=== PATIENT | male | born 1955 | race Caucasian/White ===

== ENCOUNTER 2016-07-31 14:41 | Emergency (ER) | payer OTHER ==
[~2016-07-31] VITALS: Ht 182.9 cm; Wt 153.6 kg
[2016-07-31] VITALS (9 sets, daily range): BP systolic 149–200; BP diastolic 63–106; PULSE 64–71; RESP 18–20; TEMP 99.3; O2SAT 95–98
[~2016-07-31 14:41] MED LIST: 1-ME1LIQ PO; ASPI325T PO; ATOR40TA PO; CARV12.52 PO; FENO160T2 PO; FURO1TAB93 PO; IBUP-238 PO; LINA1TAB PO; LISI30TA44 PO; MISCTAB12 PO; POTA-243 PO; TERA2CAP3 PO
--- NOTE | 2016-07-31 19:44 | PD ---
HPI Chief Complaint: Hypertension Time Seen by Provider: 19:35 Travel History International Travel<30 days: No Contact w/Intl Traveler<30days: No Traveled to known affect area: No History of Present Illness HPI 60-year-old male presents to the emergency department by private transportation the care of significant other for evaluation of elevated blood pressure. Patient reports he is on multiple blood pressure medications and has had fairly good control of his blood pressure until noticing blood pressure elevation since Sunday. No headache no loss of vision no change in speech no chest pain no referred neck jaw back shoulder arm or abdominal pain no shortness of breath no sweats no nausea no vomiting and no voiced complaint of upper or lower extremity numbness tingling or weakness or ataxia of gait. Patient has noted some intermittent mild dizziness. Patient denies any dizziness at this time. Pain is has chronic pedal edema that he states was worse but has been taking Lasix over the past few days which she typically takes only on a as-needed basis. Patient has not yet taken his evening dose of amlodipine. Patient is followed by a primary care physician but has not had any recent cardiac referral. Patient had 2 vessel cardiac bypass in 2007 in [place] moved here in 2010 has not been seen by underwear hemmer since moving to [place]. Patient does have history of hypertension dyslipidemia CAD diabetes and family history of CAD but denies personal history of tobacco use. Patient voices no other concerns or complaints. PFSH Past Medical History Narrative Medical CAD PR CHF CABG (LUE harvested vessels; chronic R/L arm BP discrepancy) hypertension dyslipidemia diabetes knee surgery no tobacco use family history CAD nursing notes reviewed Hx Anticoagulant Therapy: No Arthritis: Yes (LEFT SHOULDER) Cardiac Catheterization: Yes Cardiovascular Problems: Yes (CABG, HTN, CHF ) Chemotherapy: No Chest Pain: Yes Coronary Artery Disease: Yes Diabetes: Yes (Type 2 ) Diminished Hearing: No Hypertension: Yes Respiratory: No Immunizations Current: Yes Myocardial Infarction: Yes (X1) Past Surgical History Coronary Artery Bypass Graft: Yes (X 2 VESSELS) Hysterectomy: No Other Surgery: Yes (L Knee) Social History Alcohol Use: No Tobacco Use: No (QUIT 30+ YRS AGO SMOKED CIGS 1/2 PPD) Substance Use: No Allergies-Medications (Allergen,Severity, Reaction): Coded Allergies: No Known Allergies (Unverified , 07/31/16) Reported Meds & Prescriptions Reported Meds & Active Scripts Active Reported Furosemide 40 Mg Tab 40 Mg PO DAILY Jentadueto (Linagliptin-Metformin) 2.5-1,000 Mg Tab 1 Tab PO BID Lisinopril 40 Mg Tab 40 Mg PO DAILY Carvedilol 25 Mg Tab 25 Mg PO BID Fenofibrate 160 Mg Tab 160 Mg PO DAILY Atorvastatin (Atorvastatin Calcium) 40 Mg Tab 40 Mg PO HS K-Tab (Potassium Chloride) 10 Meq Tab 10 Meq PO DAILY Amlodipine (Amlodipine Besylate) 10 Mg Tab 10 Mg PO DAILY Terazosin (Terazosin HCl) 2 Mg Cap 2 Mg PO HS Review of Systems Except as stated in HPI: all other systems reviewed are Neg General / Constitutional: No: Fever, Chills Eyes: No: Diploplia, Blurred Vision, Visual changes HENT: Positive: Lightheadedness, No: Headaches, Vertigo, Congestion, Neck Stiffness, Neck Pain Cardiovascular: Positive: Edema (pedal), No: Chest Pain or Discomfort, Palpitations, Diaphoresis, Syncope, Dyspnea on exertion Respiratory: No: Cough, Shortness of Breath Gastrointestinal: No: Nausea, Vomiting, Abdominal Pain Genitourinary: No: Flank Pain Musculoskeletal: Positive: Edema (pedal), No: Myalgias, Arthralgias Skin: No Rash Neurologic: Positive: Dizziness, No: Weakness, Syncope, Focal Abnormalities, Coordination Problem, Headache, Change in Mentation Psychiatric: No: Anxiety Hematologic/Lymphatic: No: Lymph Node Enlargement Physical Exam Narrative GENERAL: Well-developed well-nourished male in no acute distress no respiratory distress no SKIN: Warm and dry. HEAD: Normocephalic. EYES: No scleral icterus. No injection or drainage. NECK: Supple, trachea midline. No JVD or lymphadenopathy. CARDIOVASCULAR: Regular rate and rhythm without murmurs, gallops, or rubs. RESPIRATORY: Breath sounds equal bilaterally. No accessory muscle use. GASTROINTESTINAL: Abdomen soft, non-tender, nondistended. MUSCULOSKELETAL: No cyanosis, or edema. BACK: Nontender without obvious deformity. No CVA tenderness. Data Data Last Documented VS Vital Signs Date Time Temp Pulse Resp B/P Pulse Ox O2 Delivery O2 Flow Rate FiO2 07/31/16 23:30 70 20 178/71 98 07/31/16 20:24 Room Air 07/31/16 20:12 2 07/31/16 14:54 99.3 Orders Electrocardiogram (07/31/16 19:35) Basic Metabolic Panel (Bmp) (07/31/16 19:35) Ckmb (Isoenzyme) Profile (07/31/16 19:35) Complete Blood Count With Diff (07/31/16 19:35) Magnesium (Mg) (07/31/16 19:35) Prothrombin Time / Inr (Pt) (07/31/16 19:35) Act Partial Throm Time (Ptt) (07/31/16 19:35) Troponin I (07/31/16 19:35) Chest, Single Ap (07/31/16 19:35) Ecg Monitoring (07/31/16 19:35) Bilateral Bp Monitoring (07/31/16 19:35) Iv Access Insert/Monitor (07/31/16 19:35) Oximetry (07/31/16 19:35) Oxygen Administration (07/31/16 19:35) Sodium Chloride 0.9% Flush (Ns Flush) (07/31/16 19:45) Amlodipine (Norvasc) (07/31/16 20:00) Ct Brain W/O Iv Contrast(Rout) (07/31/16 ) CKMB (07/31/16 19:40) CKMB% (07/31/16 19:40) Potassium Chloride (Kcl) (07/31/16 22:00) Labs Laboratory Tests Test 07/31/16 19:40 White Blood Count 9.3 TH/MM3 Red Blood Count 4.49 MIL/MM3 Hemoglobin 12.6 GM/DL Hematocrit 37.7 % Mean Corpuscular Volume 83.9 FL Mean Corpuscular Hemoglobin 28.0 PG Mean Corpuscular Hemoglobin 33.4 % Concent Red Cell Distribution Width 14.7 % Platelet Count 245 TH/MM3 Mean Platelet Volume 8.3 FL Neutrophils (%) (Auto) 75.6 % Lymphocytes (%) (Auto) 14.0 % Monocytes (%) (Auto) 6.6 % Eosinophils (%) (Auto) 3.4 % Basophils (%) (Auto) 0.4 % Neutrophils # (Auto) 7.1 TH/MM3 Lymphocytes # (Auto) 1.3 TH/MM3 Monocytes # (Auto) 0.6 TH/MM3 Eosinophils # (Auto) 0.3 TH/MM3 Basophils # (Auto) 0.0 TH/MM3 CBC Comment DIFF FINAL Differential Comment Prothrombin Time 11.4 SEC Prothromb Time International 1.0 RATIO Ratio Activated Partial 27.5 SEC Thromboplast Time Sodium Level 145 MEQ/L Potassium Level 3.0 MEQ/L Chloride Level 106 MEQ/L Carbon Dioxide Level 31.4 MEQ/L Anion Gap 8 MEQ/L Blood Urea Nitrogen 19 MG/DL Creatinine 1.50 MG/DL Estimat Glomerular Filtration 48 ML/MIN Rate Random Glucose 95 MG/DL Calcium Level 9.5 MG/DL Magnesium Level 1.8 MG/DL Total Creatine Kinase 157 U/L Creatine Kinase MB 1.2 NG/ML Troponin I LESS THAN 0.02 NG/ML MDM Medical Decision Making Medical Screen Exam Complete: Yes Emergency Medical Condition: Yes Medical Record Reviewed: Yes Interpretation(s) EKG sinus bradycardia rate 56 QS inferiorly age-indeterminate septal and lateral ST-T changes with flattening and slight ST segment depression in no acute ST elevation or injury pattern; no comparison EKG troponin I: less than 0.02, not elevated; CK: 157, not elevated Last Impressions Chest X-Ray 07/31/16 1935 Signed Impressions: Service Date/Time: Sunday, July 31, 2016 19:54 - CONCLUSION: 1. Cardiomegaly. Median sternotomy. Mildly elevated right hemidiaphragm. Eladio Aviles MD Head CT 07/31/16 0000 Signed Impressions: Service Date/Time: Sunday, July 31, 2016 20:21 - CONCLUSION: Normal examination. Eladio Aviles MD CBC & BMP Diagram 07/31/16 19:40 Differential Diagnosis Uncontrolled hypertension, hypertensive urgency, TIA, CVA Narrative Course Patient reports it is time for his dose of amlodipine 10mg which he takes each evening @ 8:10 PM nurse shares that shared that Sunday patient was confused when she talked with him on the phone until she returned home; @ 8:20PM and patient confirm on Sunday with elevated BP approximately 1 hour of agitation felt confusion without slurred speech visual disturbance headache or other focality that resolved upon lowering of BP and no recurrence; ( reports called because of elevated blood pressure, not feeling well then the phone service was disrupted). Patient refused to go for evaluation at the time. @ 22:06 BP: 152/78, after receiving his evening dose of amlodipine; patient with spouse at bedside aware of EKG, CT, lab results and recommendation for observation admission for further work up of episode of confusion as TIA vs HTN urgency/ transient crisis on Sunday and due to nonspecific EKG changes without cardiac evaluation since 2010 per patient and spouse. Patient aware of risk/ benefit of staying in the hospital for further in house evaluation and expediting evaluation to determine possible sequela eyes due to hypertensive episode on Sunday and also for serial enzymes. Patient states she does not want to stay feels well now blood pressure is down. is at bedside states patient artery has an appointment with his primary care physician on Sunday and will call in the a.m. to change appointment for tomorrow. Patient identified to have hypokalemia and given oral replacement in the emergency department; patient also identified to have renal insufficiency which patient and spouse reports is chronic. Diagnosis Primary Impression: Hypertension Qualified Code: I10 - Essential hypertension Additional Impressions: CAD (coronary artery disease) Qualified Code: I25.810 - Coronary artery disease involving coronary bypass graft of [place] heart without angina pectoris Hypokalemia Renal insufficiency Referrals: Primary Care Physician 1 day Patient Instructions: General Instructions Additional Instructions: Continue current medications as presently prescribed Follow-up with your primary care provider call office in a.m. to schedule follow -up appointment Return immediately to the emergency department for any concerns or change in condition Add potassium containing foods and beverages to dietary intake Increase fluid hydration Med/Other Pt SpecificInfo: No Change to Meds Disposition: 01 DISCHARGE HOME Condition: Stable Herminia Booth MD Jul 31, 2016 19:44
[2016-07-31] MEDS ORDERED: SODIUM CHLORIDE 0.9% FLUSH 5 ML FLUSH IVF PRN (19:45)
[2016-07-31] MEDS ORDERED: amLODIPine BESYLATE 5 MG TAB PO ONE (20:00)
[2016-07-31 20:06] LABS: CHLORIDE 106 MEQ/L (98-107); SODIUM (NA) 145 MEQ/L (136-145)
[2016-07-31 20:09] LABS: ANION GAP 8 MEQ/L (5-15); BICARBONATE 31.4 MEQ/L (21.0-32.0); BLOOD UREA NITROGEN 19 MG/DL (7-18); MAGNESIUM 1.8 MG/DL (1.5-2.5)
[2016-07-31 20:12] LABS: GLOMERULAR FILTRATION RATE 48 ML/MIN (>89)
[2016-07-31 20:15] LABS: CREATINE KINASE 157 U/L (39-308)
[2016-07-31 20:20] LABS: APTT (PATIENT) 27.5 SEC (24.3-30.1); PROTHROMBIN TIME - PATIENT 11.4 SEC (9.8-11.6)
[2016-07-31 20:28] LABS: CKMB 1.2 NG/ML (0.5-3.6)
[2016-07-31] MEDS ORDERED: TERA2CAP3 PO (20:32)
--- NOTE | 2016-07-31 21:00 | RADHPO ---
EXAM DATE/TIME: 07/31/2016 20:21 [facility] COMPARISON: No previous studies available for comparison. INDICATIONS : Dizziness. RADIATION DOSE: 65.72 CTDIvol (mGy) MEDICAL HISTORY : Hypertension. Diabetes mellitus type 2. Cardiovascular disease SURGICAL HISTORY : None. ENCOUNTER: Initial ACUITY: 1 day PAIN SCALE: 5/10 LOCATION: Bilateral cranial TECHNIQUE: Multiple contiguous axial images were obtained of the head. Using automated exposure control and adj ustment of the mA and/or kV according to patient size, radiation dose was kept as low as reasonably a chievable to obtain optimal diagnostic quality images. FINDINGS: CEREBRUM: The ventricles are normal for age. No evidence of midline shift, mass lesion, hemorrhage or acute in farction. No extra-axial fluid collections are seen. POSTERIOR FOSSA: The cerebellum and brainstem are intact. The 4th ventricle is midline. The cerebellopontine angle i s unremarkable. EXTRACRANIAL: The visualized portion of the orbits is intact. SKULL: The calvaria is intact. No evidence of skull fracture. CONCLUSION: Normal examination. Eladio Aviles MD on July 31, 2016 at 20:57 Board Certified Radiologist. This report was verified electronically.
--- NOTE | 2016-07-31 21:28 | RADHPO ---
EXAM DATE/TIME: 07/31/2016 19:54 [facility] COMPARISON: No previous studies available for comparison. INDICATIONS : High blood pressure. MEDICAL HISTORY : Congestive heart failure. SURGICAL HISTORY : CABG. ENCOUNTER: Initial ACUITY: 1 day PAIN SCORE: 0/10 LOCATION: Bilateral chest FINDINGS: A single view of the chest demonstrates cardiomegaly. Postoperative median sternotomy. Minimal basila r atelectasis. Mildly elevated right hemidiaphragm. CONCLUSION: 1. Cardiomegaly. Median sternotomy. Mildly elevated right hemidiaphragm. Eladio Aviles MD on July 31, 2016 at 21:26 Board Certified Radiologist. This report was verified electronically.
[2016-07-31 21:40] LABS: AUTOMATED NEUTROPHIL # 7.1 TH/MM3 (1.8-7.7); BASOPHIL % 0.4 % (0.0-2.0); EOSINOPHIL # 0.3 TH/MM3 (0-0.4); EOSINOPHIL % 3.4 % (0.0-4.0); HEMATOCRIT 37.7 % (39.0-51.0); HEMO FLAGS DIFF FINAL; LYMPHOCYTE # 1.3 TH/MM3 (1.0-4.8); MEAN CELL VOLUME 83.9 FL (80.0-100.0); MEAN CORPUSCULAR HGB CONC 33.4 % (32.0-36.0); MONO % 6.6 % (0.0-8.0); NEUT % 75.6 % (16.0-70.0); PLATELET COUNT 245 TH/MM3 (150-450); RED BLOOD COUNT 4.49 MIL/MM3 (4.50-5.90); RED CELL DISTRIBUTION WIDTH 14.7 % (11.6-17.2); WHITE BLOOD COUNT 9.3 TH/MM3 (4.0-11.0)
[2016-07-31] MEDS ORDERED: POTASSIUM CHLORIDE 20 MEQ CONTROLLED RELEASE TAB PO ONE (22:00)
[2016-07-31] MEDS ORDERED: LISI40TA PO (22:53)
[2016-07-31] MEDS ORDERED: FURO40TA PO (22:53)
[2016-07-31] MEDS ORDERED: LINA2.5T5 PO (22:53)
[2016-07-31] MEDS ORDERED: CARV25TA PO (22:53)
[2016-07-31] MEDS ORDERED: AMLO10TA2 PO (22:53)
[2016-07-31] MEDS ORDERED: K-TA10TA PO (22:53)
[2016-07-31] MEDS ORDERED: ATOR40TA16 PO (22:53)
[2016-07-31] MEDS ORDERED: FENO160T PO (22:53)
--- NOTE | 2016-08-01 17:12 | EKG ---
Date Performed: 07/31/2016 Time Performed: 19:23:24 PTAGE: 60 years EKG: Sinus bradycardia Inferior infarct - age undetermined Septal and lateral ST-T changes may b e due to myocardial ischemia Abnormal ECG NO PREVIOUS TRACING DOCTOR: Will Nogueira Interpretating Date/Time 08/01/2016 17:07:25
== END 2016-08-01 00:10 | disposition home or self-care (01) ==
LOC: PHED 14:41
DX: I10 Essential (primary) hypertension (principal); I25.10 Atherosclerotic heart disease of native coronary artery without angina pectoris; Z95.1 Presence of aortocoronary bypass graft; E87.6 Hypokalemia; R42 Dizziness and giddiness; R94.31 Abnormal electrocardiogram [ECG] [EKG]; N28.9 Disorder of kidney and ureter, unspecified; I50.9 Heart failure, unspecified; E78.5 Hyperlipidemia, unspecified; E11.9 Type 2 diabetes mellitus without complications; I25.2 Old myocardial infarction; R60.9 Edema, unspecified; R00.1 Bradycardia, unspecified
CPT/HCPCS: 70450; 71010; 80048; 82550; 82552; 83735; 84484; 85025; 85610; 85730; 93005

== ENCOUNTER 2017-05-06 10:49 | Inpatient (IN) | payer OTHER, MEDICARE ==
[~2017-05-06] VITALS: Ht 182.9 cm; Wt 149.0 kg
[2017-05-06] VITALS (20 sets, daily range): BP systolic 145–207; BP diastolic 65–102; PULSE 59–78; RESP 16–20; TEMP 97.8–98.8; O2SAT 93–97
[~2017-05-06 10:49] MED LIST changes: -1-ME1LIQ PO; +AMLO10TA2 PO; -ASPI325T PO; -ATOR40TA PO; +ATOR40TA16 PO; -CARV12.52 PO; +CARV25TA PO; +FENO160T PO; -FENO160T2 PO; -FURO1TAB93 PO; +FURO40TA PO; -IBUP-238 PO; +K-TA10TA PO; -LINA1TAB PO; +LINA2.5T5 PO; -LISI30TA44 PO; +LISI40TA PO; -MISCTAB12 PO; -POTA-243 PO
[2017-05-06] MEDS ORDERED: HEPARIN SODIUM - IV 10,000 UNITS/10 ML VIAL IV PUSH STA (11:07)
[2017-05-06] MEDS ORDERED: ASPIRIN 81 MG CHEW TAB PO STA (11:07)
[2017-05-06] MEDS ORDERED: NITROGLYCERIN 0.4 MG SL 25 TABS/BTL SL STA (11:07)
[2017-05-06] MEDS ORDERED: SODIUM CHLOR 0.9% 1000 ML INJ 1,000 ML IV ONE (11:07)
[2017-05-06] MEDS ORDERED: SODIUM CHLORIDE 0.9% FLUSH 10 ML FLUSH IVF PRN (11:15)
[2017-05-06] MEDS ORDERED: ONDANSETRON HCL 4 MG/2 ML VIAL IV PUSH ONE (11:15)
[2017-05-06] MEDS ORDERED: NITROGLYCERIN-D5W 50 MG/250 ML 250 ML IV PRN (11:15)
--- NOTE | 2017-05-06 11:25 | PD ---
HPI Chief Complaint: STEMI Alert Time Seen by Provider: 11:00 Travel History International Travel<30 days: No Contact w/Intl Traveler<30days: No Traveled to known affect area: No History of Present Illness HPI the patient 61 years old. He arrives due to dizziness sudden onset severe as if the room is spinning around him and as if he might pass out. Just prior to ER arrival he finished a breakfast and then got up to the car with gas and upon doing so became diaphoretic and dizzy. He reports his blood pressure has been high lately despite compliance with antihypertensives. In 2007 he underwent coronary bypass surgery which she reports is due to disease of the left main. He follows with Dr. Crenshaw of cardiology. Additionally he has a history of diabetes and hypertension. Patient denies chest pain and shortness of breath. No tinnitus otalgia or otorrhea. PFSH Past Medical History Hx Anticoagulant Therapy: Yes (asa) Arthritis: Yes (LEFT SHOULDER) Cardiac Catheterization: Yes Cardiovascular Problems: Yes Chemotherapy: No Chest Pain: Yes Coronary Artery Disease: Yes Diabetes: Yes Diminished Hearing: No Hypertension: Yes Respiratory: No Immunizations Current: Yes Myocardial Infarction: Yes (X1) Past Surgical History Coronary Artery Bypass Graft: Yes (X 2 VESSELS) Hysterectomy: No Other Surgery: Yes (L Knee) Social History Alcohol Use: No Tobacco Use: No (QUIT 30+ YRS AGO SMOKED CIGS 1/2 PPD) Substance Use: No Allergies-Medications (Allergen,Severity, Reaction): Coded Allergies: No Known Allergies (Unverified Allergy, Unknown, 05/06/17) Reported Meds & Prescriptions Reported Meds & Active Scripts Active Reported Folic Acid 0.8 Mg Tab 800 Mcg PO DAILY Trexall (Methotrexate) 7.5 Mg Tab 22.5 Mg PO Q7D Centrum (Multiple Vitamins W/ Minerals) 1 Chew 1 Tab CHEW DAILY Aspirin EC (Aspirin) 81 Mg Tabdr 81 Mg PO DAILY Clonidine (Clonidine HCl) 0.2 Mg Tab 0.2 Mg PO TID Furosemide 40 Mg Tab 20 Mg PO DAILY Jentadueto (Linagliptin-Metformin) 2.5-1,000 Mg Tab 1 Tab PO BID Lisinopril 40 Mg Tab 40 Mg PO BID Carvedilol 25 Mg Tab 25 Mg PO BID Fenofibrate 160 Mg Tab 160 Mg PO DAILY Atorvastatin (Atorvastatin Calcium) 40 Mg Tab 40 Mg PO HS K-Tab (Potassium Chloride) 10 Meq Tab 10 Meq PO DAILY Amlodipine (Amlodipine Besylate) 10 Mg Tab 10 Mg PO DAILY Terazosin (Terazosin HCl) 2 Mg Cap 10 Mg PO HS Review of Systems Except as stated in HPI: all other systems reviewed are Neg General / Constitutional: No: Fever Cardiovascular: No: Chest Pain or Discomfort Neurologic: Positive: Dizziness, No: Syncope Physical Exam Narrative GENERAL: Well-nourished well-developed 61-year-old male mild to moderate distress SKIN: Warm. Diaphoresis. HEAD: Atraumatic. Normocephalic. EYES: Pupils equal and round. No scleral icterus. No injection or drainage. No nystagmus. ENT: No nasal bleeding or discharge. Mucous membranes pink and moist. NECK: Trachea midline. No JVD. CARDIOVASCULAR: Regular rate and rhythm. RESPIRATORY: No accessory muscle use. Clear to auscultation. Breath sounds equal bilaterally. GASTROINTESTINAL: Abdomen soft, non-tender, nondistended. Hepatic and splenic margins not palpable. MUSCULOSKELETAL: Extremities without clubbing, cyanosis, or edema. No obvious deformities. NEUROLOGICAL: Awake and alert. No obvious cranial nerve deficits. Motor grossly within normal limits. Five out of 5 muscle strength in the arms and legs. Normal speech. PSYCHIATRIC: Appropriate mood and affect; insight and judgment normal. Data Data Last Documented VS Vital Signs Date Time Temp Pulse Resp B/P (MAP) Pulse Ox O2 Delivery O2 Flow Rate FiO2 05/06/17 12:55 64 18 157/82 (107) 97 Nasal Cannula 2.00 05/06/17 10:55 98.7 VS reviewed Orders Orders Troponin I (05/06/17 11:07) Ckmb (Isoenzyme) Profile (05/06/17 11:07) Complete Blood Count With Diff (05/06/17 11:07) Basic Metabolic Panel (Bmp) (05/06/17 11:07) Magnesium (Mg) (05/06/17 11:07) Calcium (05/06/17 11:07) Prothrombin Time / Inr (Pt) (05/06/17 11:07) Act Partial Throm Time (Ptt) (05/06/17 11:07) B-Type Natriuretic Peptide (05/06/17 11:07) Chest, Single Ap (05/06/17 11:07) Electrocardiogram (05/06/17 11:07) Oxygen Administration (05/06/17 11:07) Iv Access Insert/Monitor (05/06/17 11:07) Oximetry (05/06/17 11:07) Sodium Chlor 0.9% 1000 Ml Inj (Ns 1000 M (05/06/17 11:07) Sodium Chloride 0.9% Flush (Ns Flush) (05/06/17 11:15) Aspirin Chew (Aspirin Chew) (05/06/17 11:07) Nitroglycerin Sl (Nitrostat Sl) (05/06/17 11:07) Nitroglycerin-D5w 50 Mg/250 Ml (Nitrogly (05/06/17 11:15) Heparin Inj (Heparin Inj) (05/06/17 11:07) Ondansetron Inj (Zofran Inj) (05/06/17 11:15) Lorazepam Inj (Ativan Inj) (05/06/17 11:30) Meclizine (Antivert) (05/06/17 11:30) Cardiac Catheterization (05/06/17 ) Ct Pulmonary Angiogram (05/06/17 11:35) CKMB (05/06/17 11:00) CKMB% (05/06/17 11:00) Heparin Inj (Heparin Inj) (05/06/17 18:45) Heparin Inj (Heparin Inj) (05/06/17 18:45) Cbc No Diff, Includes Plts (05/09/17 06:00) Act Partial Throm Time (Ptt) (05/06/17 19:32) Occult Blood (Hemoccult) Stool (05/06/17 12:32) Heparin Infusion JULISA.Q1H (05/06/17 12:34) Heparin-D5w 25,000 U/250 Ml (Heparin-D5w (05/06/17 12:45) Iohexol 350 Inj (Omnipaque 350 Inj) (05/06/17 12:46) Admit Order (Ed Use Only) (05/06/17 ) Variety Lathe Operator / Telemetry JULISA.Q8H (05/06/17 13:01) Vital Signs (Adult) Q4H (05/06/17 13:01) Diet Npo (05/06/17 Lunch) Activity Bed Rest (05/06/17 13:01) Notify Dr: Other (05/06/17 13:01) Labs Laboratory Tests Test 05/06/17 11:00 White Blood Count 8.4 TH/MM3 Red Blood Count 4.43 MIL/MM3 Hemoglobin 12.8 GM/DL Hematocrit 38.2 % Mean Corpuscular Volume 86.2 FL Mean Corpuscular Hemoglobin 28.9 PG Mean Corpuscular Hemoglobin Concent 33.5 % Red Cell Distribution Width 17.1 % Platelet Count 296 TH/MM3 Mean Platelet Volume 8.0 FL Neutrophils (%) (Auto) 81.3 % Lymphocytes (%) (Auto) 8.9 % Monocytes (%) (Auto) 5.9 % Eosinophils (%) (Auto) 3.4 % Basophils (%) (Auto) 0.5 % Neutrophils # (Auto) 6.8 TH/MM3 Lymphocytes # (Auto) 0.8 TH/MM3 Monocytes # (Auto) 0.5 TH/MM3 Eosinophils # (Auto) 0.3 TH/MM3 Basophils # (Auto) 0.0 TH/MM3 CBC Comment DIFF FINAL Differential Comment Prothrombin Time 10.9 SEC Prothromb Time International Ratio 1.0 RATIO Activated Partial Thromboplast Time 27.6 SEC Blood Urea Nitrogen 15 MG/DL Creatinine 1.50 MG/DL Random Glucose 168 MG/DL Calcium Level 9.1 MG/DL Magnesium Level 2.3 MG/DL Sodium Level 142 MEQ/L Potassium Level 3.3 MEQ/L Chloride Level 105 MEQ/L Carbon Dioxide Level 28.2 MEQ/L Anion Gap 9 MEQ/L Estimat Glomerular Filtration Rate 47 ML/MIN Total Creatine Kinase 151 U/L Creatine Kinase MB 1.2 NG/ML Troponin I LESS THAN 0.02 NG/ML B-Type Natriuretic Peptide 104 PG/ML [facility] Medical Decision Making Medical Screen Exam Complete: Yes Emergency Medical Condition: Yes Medical Record Reviewed: Yes Differential Diagnosis NSTEMI, unstable angina, coronary vasospasm, PE, PTX, aortic dissection, pericarditis, myocarditis, endocarditis, PNA, esophageal disease, aneurysm, musculoskeletal etiologies, anxiety, cocaine/sympathomimetic abuse Narrative Course EKG reveals ST changes in II, III and aVF some pf which are concerning for acute coronary ischemia, additional changes in multiple other leads are noted rate 67 EKG was discussed with Dr. Aviles who advised against a STEMI alert activation. Labwork with plan for CT pulmonary angiogram added on. Patient received Ativan 1 mg IV here as well as meclizine and Zofran reports significant improvement with dizziness and nausea upon reassessment at 12:15 PM however has mild persistent dizziness, which is most likely peripheral in nature. Tn < 0.02 CXR: cardiomegaly CBC & BMP Diagram 05/06/17 11:00 Calcium Level 9.1, Magnesium Level 2.3 Pt will be sent to [facility] CT pulmonary angiogram is negative for PE d/w Dr Castillo Critical Care Narrative Aggregate critical care time was 40 minutes. Time to perform other separately billable procedures was not included in the critical care time. My time did not include minutes spent treating any other patients simultaneously or on activities that did not directly contribute to the patient's treatment. The services I provided to this patient were to treat and/or prevent clinically significant deterioration that could result in: Cardiopulmonary arrest, permanent disability I provided critical care services requiring my management, as noted below: Chart data review, documentation time, medication orders and management, vital sign assessments/reviewing monitor data, ordering and reviewing lab tests, ordering and interpreting/reviewing x-rays and diagnostic studies, care of the patient and discussion of the patient with the admitting physicians. Diagnosis Primary Impression: Dizziness Additional Impression: ST segment changes on electrocardiogram Admitting Information Admitting Physician Requests: Kostas Lui MD May 06, 2017 11:25
[2017-05-06] MEDS ORDERED: MECLIZINE HCL 25 MG TAB PO ONE (11:30)
[2017-05-06] MEDS ORDERED: LORazepam 2 MG/ML VIAL IV PUSH ONE (11:30)
[2017-05-06 11:31] LABS: AUTOMATED NEUTROPHIL # 6.8 TH/MM3 (1.8-7.7); BASOPHIL % 0.5 % (0.0-2.0); EOSINOPHIL # 0.3 TH/MM3 (0-0.4); EOSINOPHIL % 3.4 % (0.0-4.0); HEMATOCRIT 38.2 % (39.0-51.0); LYMPH % 8.9 % (9.0-44.0); LYMPHOCYTE # 0.8 TH/MM3 (1.0-4.8); MEAN CELL VOLUME 86.2 FL (80.0-100.0); MEAN CORPUSCULAR HEMOGLOBIN 28.9 PG (27.0-34.0); MEAN CORPUSCULAR HGB CONC 33.5 % (32.0-36.0); MONO % 5.9 % (0.0-8.0); NEUT % 81.3 % (16.0-70.0); PLATELET COUNT 296 TH/MM3 (150-450); RED BLOOD COUNT 4.43 MIL/MM3 (4.50-5.90); RED CELL DISTRIBUTION WIDTH 17.1 % (11.6-17.2); WHITE BLOOD COUNT 8.4 TH/MM3 (4.0-11.0)
--- NOTE | 2017-05-06 11:32 | RADRPT ---
EXAM DATE/TIME: 05/06/2017 11:09 [facility] COMPARISON: CHEST SINGLE AP, July 31, 2016, 19:54. INDICATIONS : Cardiac alert, sweating, nausea, chest pain MEDICAL HISTORY : Congestive heart failure. SURGICAL HISTORY : CABG. ENCOUNTER: Initial ACUITY: 1 day PAIN SCORE: 7/10 LOCATION: Bilateral chest FINDINGS: The heart is mildly enlarged. There is evidence of previous CABG. Lungs are clear without evidence of acute airspace disease or congestion. CONCLUSION: Mild cardiomegaly Status post CABG No acute process Nelson Ruff MD on May 06, 2017 at 11:30 Board Certified Radiologist. This report was verified electronically.
[2017-05-06 11:42] LABS: HEMO FLAGS DIFF FINAL
[2017-05-06 11:44] LABS: CHLORIDE 105 MEQ/L (98-107); POTASSIUM 3.3 MEQ/L (3.5-5.1); SODIUM (NA) 142 MEQ/L (136-145)
[2017-05-06 11:47] LABS: ANION GAP 9 MEQ/L (5-15); BICARBONATE 28.2 MEQ/L (21.0-32.0); BLOOD UREA NITROGEN 15 MG/DL (7-18); MAGNESIUM 2.3 MG/DL (1.5-2.5)
[2017-05-06 11:51] LABS: GLOMERULAR FILTRATION RATE 47 ML/MIN (>89)
[2017-05-06 11:54] LABS: CREATINE KINASE 151 U/L (39-308)
[2017-05-06] MEDS ORDERED: CLON0.2T PO (11:59)
[2017-05-06] MEDS ORDERED: CENTCHW4 CHEW (11:59)
[2017-05-06] MEDS ORDERED: ASPI81TA23 PO (11:59)
[2017-05-06] MEDS ORDERED: TREX7.5T PO (12:01)
[2017-05-06] MEDS ORDERED: FOLI800T PO (12:01)
[2017-05-06 12:03] LABS: APTT (PATIENT) 27.6 SEC (24.3-30.1); PROTHROMBIN TIME - PATIENT 10.9 SEC (9.8-11.6)
[2017-05-06 12:06] LABS: CKMB 1.2 NG/ML (0.5-3.6)
[2017-05-06] MEDS ORDERED: HEPARIN-D5W 25,000 U/250 ML 250 ML IV PRN (12:45)
[2017-05-06] MEDS ORDERED: IOHEXOL 350 MG/ML 10 ML VIAL (for RAD DIAG) IVCONTRAST ONE (12:46)
--- NOTE | 2017-05-06 12:53 | RADRPT ---
EXAM DATE/TIME: 05/06/2017 12:34 [facility] COMPARISON: No previous studies available for comparison. INDICATIONS : Dizziness and sweating. Evaluate for pulmonary embolism. IV CONTRAST: 75 cc Omnipaque 350 (iohexol) IV RADIATION DOSE: 21.70 CTDIvol (mGy) MEDICAL HISTORY : Cardiovascular disease. Myocardial infarction. Hypertension.Anticoagulant therapy. SURGICAL HISTORY : CABG ENCOUNTER: Initial ACUITY: 1 day PAIN SCALE: 0/10 LOCATION: chest TECHNIQUE: Volumetric scanning of the chest was performed using a pulmonary embolism protocol MIP images were re constructed. Using automated exposure control and adjustment of the mA and/or kV according to patien t size, radiation dose was kept as low as reasonably achievable to obtain optimal diagnostic quality images. DICOM format image data is available electronically for review and comparison. Follow-up recommendations for detected pulmonary nodules are based at a minimum on nodule size and pa tient risk factors according to Fleischner Society Guidelines. FINDINGS: PULMONARY ARTERIES: No filling defects are seen in the pulmonary arteries through the segmental level. LUNGS: There is no consolidation or pneumothorax . No concerning pulmonary nodule is visualized. PLEURAE: There is no pleural thickening or pleural effusion. MEDIASTINUM: Post surgical changes from prior CABG are noted. Heart is moderately enlarged. Coronary artery calcif ication is identified. MUSCULOSKELETAL: Within normal limits for patient age. MISCELLANEOUS: The visualized upper abdominal organs demonstrate no acute abnormality. Calcified gallstone is noted. CONCLUSION: 1. No evidence of pulmonary embolism or acute cardio pulmonary process. 2. Cardiomegaly status post CABG. 3. Calcific coronary disease. 4. Cholelithiasis Nelson Ruff MD on May 06, 2017 at 12:48 Board Certified Radiologist. This report was verified electronically.
[2017-05-06] MEDS ORDERED: HEPARIN SODIUM - SQ 10,000 UNITS/ML VIAL SQ SCH (14:00)
[2017-05-06] MEDS ORDERED: LORazepam 1 MG TAB PO ONE (14:00)
--- NOTE | 2017-05-06 14:02 | HHI.HP ---
[facility] Primary Care Physician Non-Staff Admission Diagnosis Dizziness; EKG Changes; Nausea Diagnoses: Chief Complaint: And dizziness and sweating Travel History International Travel<30 Days: No Contact w/Intl Traveler <30 Da: No Traveled to Known Affected Are: No History of Present Illness 61-year-old white male being admitted for atypical angina. Patient was in his usual state of health until earlier today when he was out doing chores and suddenly felt an onset of intense dizziness, lightheadedness, and diaphoresis. He experienced some nausea as well. He noticed that constantly moving around and sudden movements would intensify the symptoms even further. It were no alleviating factors identified other than staying at rest. Patient denies any micheline chest pain or shortness of breath. He denies ever experiencing such symptoms in the past. He has had a history of CABG as well as a few stress tests afterwards which were unremarkable per patient. States that he is on a trial with Dr. Crenshaw on taking methotrexate. States that he is compliant with his aspirin and his Lipitor. Says that he still feels dizzy and lightheaded now but says that his symptoms got partially improved after receiving some medications in the ER (received meclizine and Zofran and nitroglycerin) but isn't sure exactly which medicine helped. ) Review of Systems Except as stated in HPI: all other systems reviewed are Neg Past Family Social History Past Medical History CAD, arthritis Past Surgical History CABG, left knee surgery Allergies: Coded Allergies: No Known Allergies (Unverified Allergy, Unknown, 05/06/17) Family History Mother with heart disease Social History Stop smoking 30 years ago, up until then had been smoking half pack per day, does report occasional light alcohol use about 1 drink every month or so. Denies illicit drug use. Physical Exam Vital Signs Vital Signs Date Time Temp Pulse Resp B/P (MAP) Pulse Ox O2 Delivery O2 Flow Rate FiO2 05/06/17 12:55 64 18 157/82 (107) 97 Nasal Cannula 2.00 05/06/17 12:20 59 18 164/78 (106) 95 Nasal Cannula 2.00 05/06/17 12:02 63 18 158/79 (105) 94 Nasal Cannula 2.00 05/06/17 11:40 64 18 154/75 (101) 93 Nasal Cannula 2.00 05/06/17 11:30 65 18 157/79 (105) 93 Nasal Cannula 2.00 05/06/17 11:15 69 20 187/102 (130) 95 Nasal Cannula 2.00 05/06/17 10:55 71 95 Room Air 05/06/17 10:55 98.7 71 20 207/94 (131) 95 05/06/17 10:50 95 Nasal Cannula 2.00 05/06/17 10:50 95 Nasal Cannula 2.00 Physical Exam VS: Afebrile GENERAL: Middle-aged obese white male, no acute distress SKIN: Warm and dry. EYES: No scleral icterus. No injection or drainage. Has obvious nystagmus horizontally that is more pronounced when looking towards the left and reproducible and consistent, much milder and non-consistent when looking towards the right ENT: No nasal bleeding or discharge. Mucous membranes pink and moist. CARDIOVASCULAR: Regular rate and rhythm. no murmurs RESPIRATORY: No accessory muscle use. Clear to auscultation. Breath sounds equal bilaterally. GASTROINTESTINAL: Abdomen soft, non-tender, nondistended. Hepatic and splenic margins not palpable. Extremities: No clubbing, cyanosis, or edema. No obvious deformities. MUSCULOSKELETAL: Extremities without clubbing, cyanosis, or edema. No obvious deformities. grossly intact ROM with 5/5 strength in upper and lower extremities proximally NEUROLOGICAL: Awake and alert. No obvious cranial nerve deficits. No facial droop nor slurred speech noted. PSYCHIATRIC: Appropriate mood and affect; insight and judgment normal. Laboratory Laboratory Tests Test 05/06/17 11:00 White Blood Count 8.4 Red Blood Count 4.43 Hemoglobin 12.8 Hematocrit 38.2 Mean Corpuscular Volume 86.2 Mean Corpuscular Hemoglobin 28.9 Mean Corpuscular Hemoglobin Concent 33.5 Red Cell Distribution Width 17.1 Platelet Count 296 Mean Platelet Volume 8.0 Neutrophils (%) (Auto) 81.3 Lymphocytes (%) (Auto) 8.9 Monocytes (%) (Auto) 5.9 Eosinophils (%) (Auto) 3.4 Basophils (%) (Auto) 0.5 Neutrophils # (Auto) 6.8 Lymphocytes # (Auto) 0.8 Monocytes # (Auto) 0.5 Eosinophils # (Auto) 0.3 Basophils # (Auto) 0.0 CBC Comment DIFF FINAL Differential Comment Prothrombin Time 10.9 Prothromb Time International Ratio 1.0 Activated Partial Thromboplast Time 27.6 Blood Urea Nitrogen 15 Creatinine 1.50 Random Glucose 168 Calcium Level 9.1 Magnesium Level 2.3 Sodium Level 142 Potassium Level 3.3 Chloride Level 105 Carbon Dioxide Level 28.2 Anion Gap 9 Estimat Glomerular Filtration Rate 47 Total Creatine Kinase 151 Creatine Kinase MB 1.2 Troponin I LESS THAN 0.02 B-Type Natriuretic Peptide 104 Result Diagram: 05/06/17 1100 05/06/17 [address] Angiography 05/06/17 1135 Signed Impressions: Service Date/Time: Saturday, May 06, 2017 12:34 - CONCLUSION: 1. No evidence of pulmonary embolism or acute cardio pulmonary process. 2. Cardiomegaly status post CABG. 3. Calcific coronary disease. 4. Cholelithiasis Nelson Ruff MD Chest X-Ray 05/06/17 1107 Signed Impressions: Service Date/Time: Saturday, May 06, 2017 11:09 - CONCLUSION: Mild cardiomegaly Status post CABG No acute process Nelson Ruff MD Caprini VTE Risk Assessment Caprini VTE Risk Assessment: Mod/High Risk (score >= 2) Caprini Risk Assessment Model Point Value = 1 Point Value = 2 Point Value = 3 Point Value = 5 Age 41-60 Minor surgery BMI > 25 kg/m2 Swollen legs Varicose veins or History of unexplained or recurrent spontaneous Oral contraceptives or hormone replacement Sepsis (< 1 month) Serious lung disease, including pneumonia (< 1 month) Abnormal pulmonary function Acute myocardial infarction Congestive heart failure (< 1 month) History of inflammatory bowel disease Medical patient at bed rest Age 61-74 Arthroscopic surgery Major open surgery (> 45 min) Laparoscopic surgery (> 45 min) Malignancy Confined to bed (> 72 hours) Immobilizing plaster cast Central venous access Age >= 75 History of VTE Family history of VTE Factor V Leiden Prothrombin [id number] Lupus anticoagulant Anticardiolipin antibodies Elevated serum homocysteine Heparin-induced thrombocytopenia Other congenital or acquired thrombophilia Stroke (< 1 month) Elective arthroplasty Hip, pelvis, or leg fracture Acute spinal cord injury (< 1 month) Prophylaxis Regimen Total Risk Factor Score Risk Level Prophylaxis Regimen 0-1 Low Early ambulation 2 Moderate Order ONE of the following: *Sequential Compression Device (SCD) *Heparin 5000 units SQ BID 3-4 Higher Order ONE of the following medications: *Heparin 5000 units SQ TID *Enoxaparin/Lovenox 40 mg SQ daily (WT < 150 kg, CrCl > 30 mL/min) *Enoxaparin/Lovenox 30 mg SQ daily (WT < 150 kg, CrCl > 10-29 mL/min) *Enoxaparin/Lovenox 30 mg SQ BID (WT < 150 kg, CrCl > 30 mL/min) AND/OR *Sequential Compression Device (SCD) 5 or more Highest Order ONE of the following medications: *Heparin 5000 units SQ TID (Preferred with Epidurals) *Enoxaparin/Lovenox 40 mg SQ daily (WT < 150 kg, CrCl > 30 mL/min) *Enoxaparin/Lovenox 30 mg SQ daily (WT < 150 kg, CrCl > 10-29 mL/min) *Enoxaparin/Lovenox 30 mg SQ BID (WT < 150 kg, CrCl > 30 mL/min) AND *Sequential Compression Device (SCD) Assessment and Plan Assessment and Plan Possible Atypical angina - Independently reviewed EKGs which showed no significant ST segment changes that are concerning for infarction or ischemia, there is some mildly more pronounced T-wave inversions in aVL and V2 at best. - Aspirin, trending troponins which are so far negative - Transferring patient to [facility] per cardiology Vertigo - Benign positional versus labyrinthitis vs Meniers - Minimal improvement with meclizine and Zofran - We'll give one-time dose of Ativan as well as starting thiazide diuretic - Fall precautions - Continue meclizine when necessary vertigo and IV Zofran for refractory vertigo - If vertigo does not improve significantly, would recommend giving burst of IV steroids for possible labyrinthitis - starting thiazide diuretic CAD/hypertension - Continue home Coreg, amlodipine, atorvastatin, methotrexate, lisinopril, Terazosin VTE prevention heparin protocol for ACS Physician Certification 2 Midnight Certification Type: Admission for Inpatient Services Order for Inpatient Services The services are ordered in accordance with Medicare regulations or non- Medicare payer requirements, as applicable. In the case of services not specified as inpatient-only, they are appropriately provided as inpatient services in accordance with the 2-midnight benchmark. Estimated LOS (days): 2 2 days is the estimated time the patient will need to remain in the hospital, assuming treatment plan goals are met and no additional complications. Post-Hospital Plan: Home Yousuf Castillo MD May 06, 2017 14:02
[2017-05-06] MEDS: SODIUM CHLOR 0.45% 1000 ML INJ 1,000 ML IV SCH (14:10)
[2017-05-06] MEDS: cloNIDine HCL 0.2 MG TAB PO SCH (17:02)
[2017-05-06] MEDS: TRIAMTERENE/HCTZ 37.5 MG/25 MG CAP PO SCH (17:02)
[2017-05-06] MEDS: MECLIZINE HCL 25 MG TAB PO PRN (17:04)
[2017-05-06] MEDS ORDERED: HEPARIN SODIUM - IV 10,000 UNITS/10 ML VIAL IV PUSH PRN (18:45)
[2017-05-06] MEDS ORDERED: HEPARIN - 10,000 UNITS/ML IV ADDITIVE IV PUSH PRN (18:45)
[2017-05-06] MEDS ORDERED: TERAZOSIN HCL 5 MG CAP PO SCH (21:00)
[2017-05-06] MEDS ORDERED: ATORVASTATIN 40 MG TAB PO SCH (21:00)
[2017-05-06] MEDS: CARVEDILOL 12.5 MG TAB PO SCH (21:28)
[2017-05-06 22:41] LABS: APTT (PATIENT) 27.1 SEC (24.3-30.1)
[2017-05-07] VITALS (14 sets, daily range): BP systolic 158–201; BP diastolic 62–86; PULSE 64–80; RESP 18; TEMP 97.4; O2SAT 94
[2017-05-07] MEDS: SODIUM CHLOR 0.45% 1000 ML INJ 1,000 ML IV SCH (02:55)
[2017-05-07 07:00] LABS: BICARBONATE 27.1 MEQ/L (21.0-32.0)
[2017-05-07 07:12] LABS: APTT (PATIENT) 28.3 SEC (24.3-30.1)
[2017-05-07] MEDS ORDERED: POTASSIUM CHLORIDE 10 MEQ CONTROLLED RELEASE TAB PO ONE (08:45)
[2017-05-07] MEDS ORDERED: FUROSEMIDE 20 MG TAB PO SCH (09:00)
[2017-05-07] MEDS ORDERED: ASPIRIN EC 81 MG TABEC PO SCH (09:00)
[2017-05-07] MEDS ORDERED: POTASSIUM CHLORIDE 10 MEQ CONTROLLED RELEASE TAB PO SCH (09:00)
[2017-05-07] MEDS: TRIAMTERENE/HCTZ 37.5 MG/25 MG CAP PO SCH (09:00)
[2017-05-07] MEDS ORDERED: FOLIC ACID 1 MG TAB PO SCH (09:00)
[2017-05-07] MEDS ORDERED: FENOFIBRATE 145 MG TAB PO SCH (09:00)
--- NOTE | 2017-05-07 09:03 | HHI.PR ---
Subjective Remarks Patient says that nausea has improved greatly. Her still slightly dizzy. Denies any chest pain or shortness of breath. Objective Vital Signs Date Time Temp Pulse Resp B/P (MAP) Pulse Ox O2 Delivery O2 Flow Rate FiO2 05/07/17 06:00 74 05/07/17 05:00 64 05/07/17 04:00 80 05/07/17 03:00 97.4 71 18 162/86 (111) 94 05/07/17 03:00 69 05/07/17 01:00 70 05/07/17 00:00 70 05/06/17 23:00 98.0 76 18 152/76 (101) 96 05/06/17 23:00 70 05/06/17 22:00 74 05/06/17 21:00 78 05/06/17 20:00 70 05/06/17 19:00 98.8 70 16 167/82 (110) 95 05/06/17 19:00 70 05/06/17 18:00 68 05/06/17 17:30 145/79 (101) 05/06/17 17:00 66 05/06/17 16:33 97.8 66 18 169/82 (111) 97 05/06/17 15:33 64 20 187/65 (105) 95 Nasal Cannula 2.00 05/06/17 15:22 65 18 157/76 (103) 96 Nasal Cannula 2.00 05/06/17 14:19 70 18 167/77 (107) 95 Nasal Cannula 2.00 05/06/17 12:55 64 18 157/82 (107) 97 Nasal Cannula 2.00 05/06/17 12:20 59 18 164/78 (106) 95 Nasal Cannula 2.00 05/06/17 12:02 63 18 158/79 (105) 94 Nasal Cannula 2.00 05/06/17 11:40 64 18 154/75 (101) 93 Nasal Cannula 2.00 05/06/17 11:30 65 18 157/79 (105) 93 Nasal Cannula 2.00 05/06/17 11:15 69 20 187/102 (130) 95 Nasal Cannula 2.00 05/06/17 10:55 71 95 Room Air 05/06/17 10:55 98.7 71 20 207/94 (131) 95 05/06/17 10:50 95 Nasal Cannula 2.00 05/06/17 10:50 95 Nasal Cannula 2.00 I/O 05/06/17 05/06/17 05/06/17 05/07/17 05/07/17 05/07/17 07:00 15:00 23:00 07:00 15:00 23:00 Intake Total 600 ml 240 ml Output Total 700 ml 300 ml 1600 ml Balance -100 ml -300 ml -1360 ml Intake Oral 240 ml IV Total 600 ml Output Urine Total 700 ml 300 ml 1600 ml # Voids 2 Result Diagram: 05/06/17 1100 05/07/17 0534 Objective Remarks GENERAL: Patient sitting up in bed. Appears comfortable. Patient has nystagmus on left gaze. Tried Shaunna maneuver which was unsuccessful. SKIN: Warm and dry. HEAD: Normocephalic. EYES: No scleral icterus. No injection or drainage. NECK: Supple, trachea midline. No JVD. CARDIOVASCULAR: Regular rate and rhythm without murmurs, gallops, or rubs. RESPIRATORY: Breath sounds equal bilaterally. No accessory muscle use. GASTROINTESTINAL: Abdomen soft, non-tender, nondistended. MUSCULOSKELETAL: No cyanosis, or edema. BACK: Nontender without obvious deformity. No CVA tenderness. A/P Assessment and Plan //Possible Atypical angina - Independently reviewed EKGs which showed no significant ST segment changes that are concerning for infarction or ischemia, there is some mildly more pronounced T-wave inversions in aVL and V2 at best. - Aspirin, trending troponins which are so far negative - Transferring patient to [facility] per cardiology = Continue close monitoring and [facility]. Continues on heparin. Plan per cardiology. Appreciate assistance. //Hypokalemia. Potassium 3.0. Replaced. Continue to monitor. //Vertigo - Benign positional versus labyrinthitis vs Meniers - Minimal improvement with meclizine and Zofran - We'll give one-time dose of Ativan as well as starting thiazide diuretic - Fall precautions - Continue meclizine when necessary vertigo and IV Zofran for refractory vertigo - If vertigo does not improve significantly, would recommend giving burst of IV steroids for possible labyrinthitis - starting thiazide diuretic = 05/07. Improved nausea. Still with nystagmus on left gaze. Tried Shaunna maneuver which was unsuccessful. We'll treat symptomatically. Pending PT evaluation. CAD/hypertension - Continue home Coreg, amlodipine, atorvastatin, methotrexate, lisinopril, Terazosin //VTE prevention heparin protocol for ACS Discharge Planning Pending cardiology clearance Pending PT evaluation. May rigo gaviria versus Chris Aguilar MD May 07, 2017 09:03
[2017-05-07] MEDS: cloNIDine HCL 0.2 MG TAB PO SCH ×2 (09:18→13:00)
[2017-05-07] MEDS: CARVEDILOL 12.5 MG TAB PO SCH (09:18)
[2017-05-07] MEDS ORDERED: ENALAPRILAT 1.25 MG/ML VIAL IV PUSH PRN (09:30)
[2017-05-07] MEDS: MECLIZINE HCL 25 MG TAB PO PRN (09:34)
[2017-05-07] MEDS ORDERED: INFLUENZA VIRUS VACCINE (QUADRIVALENT) 0.5 ML SYR IM ONE (10:00)
[2017-05-07] MEDS ORDERED: POTASSIUM CHLORIDE 20 MEQ CONTROLLED RELEASE TAB PO STA (10:22)
[2017-05-07] MEDS ORDERED: LISINOPRIL 20 MG TAB PO SCH (10:45)
--- NOTE | 2017-05-07 11:08 | MB ---
cc: GAB DURAN M.D. DATE OF CONSULTATION: 05/07/2017 REASON FOR CONSULTATION Evaluation of abnormal EKG. HISTORY OF PRESENT ILLNESS Isi Joy is a 61-year-old man who is known to me. He came in with an acute attack of vertigo. His EKG suggested an acute inferior STEMI but all his Old EKGs have looked the same and this actually was not any change in his EKG, however, they put him through the chest pain protocol and he ended up on a heparin drip and admitted, when in actuality he has not had any chest pain at all and that all he has had is profound vertigo and some diaphoresis associated with it. The patient has known coronary artery disease. He had a heart attack in 2007 and found to have left main disease and underwent bypass surgery with a left internal mammary graft to the LAD and left radial artery to the circumflex artery. He does not have any chest pain. He has got cardiac risk factors including hypertension, diabetes. His hypertension has been difficult to control and his medications have been trended upward. Just discovered that he is now on two different types of diuretics, he is on Lasix 40 mg daily, he is also on Triamterene and hydrochlorothiazide and we discovered he is hypokalemic because of this. He has chronic ringing in his ears and is hard of hearing and has had vertigo before. I really could not elicit any acute complaints except for the vertigo. PAST MEDICAL HISTORY Past medical history includes: 1. Diabetes. 2. Hypertension. 3. Coronary artery disease as described above with previous bypass surgery. 4. He is in a research trial called CIRT which is methotrexate versus placebo for reducing cardiac events. 5. He has arthritis in his knees and left shoulder. 6. [id number]. 7. Hyperlipidemia. 8. Morbid obesity. He is losing some weight. 9. Chronic tinnitus. PAST SURGICAL HISTORY 1. Fractured left patella. 2. Right carotid endarterectomy with a negative Doppler in July. 3. Left shoulder repair. SOCIAL HISTORY He is an ex-smoker. FAMILY HISTORY Family history is positive for heart disease. PHYSICAL EXAMINATION GENERAL: Physical exam reveals an obese, pleasant white male in no acute distress. VITAL SIGNS: Charted. HEENT: Exam unremarkable. NECK: No JVD, no bruits. CHEST: Clear to auscultation. CARDIAC: S1-S2, regular rate and rhythm. No murmurs, gallops. ABDOMEN: Soft, nontender, obese. EXTREMITIES: No clubbing, cyanosis or edema. EKG Shows sinus rhythm with slight ST elevation inferiorly with Q-waves which is chronic for him. He has a strain pattern in his other leads. ECHO Echo February 12 showed moderate LVH, left atrial size 5.6 cm and EF 55-60%. IMPRESSION 1. Acute exacerbation of vertigo. 2. Stable coronary disease. 3. Chronic hypertension. 4. Hypokalemia secondary to medications. RECOMMENDATIONS Increase the carvedilol to 50 b.i.d. which was his dose at home. Restart lisinopril 40 mg daily since he was on lisinopril at home. Change the Lasix to 40 mg daily. Replete his potassium. Stop the Triamterene hydrochlorothiazide. Therapy for his vertigo will be left to the primary care doctor. MD MIGNON Miller/DONELL /10:53 AM /10:58 AM
[2017-05-07] MEDS ORDERED: POTA10TA2 PO (11:31)
[2017-05-07] MEDS ORDERED: MECL1TAB42 PO (11:31)
[2017-05-07] MEDS ORDERED: WALKER WHEELS/F1 MIS (11:32)
--- NOTE | 2017-05-07 11:33 | HHI.FF ---
Face to Face Verification Diagnosis: (1) Vertigo (2) Hypertension (3) Hypokalemia Physical Therapy Order: Evaluate and Treat Home Health Nursing Order: Signs/symptoms of disease process Nursing assessment with vital signs I have seen patient Isi Song Jr Rufino on 05/07/17. My clinical findings support the need for the requested home health care services because: High risk of falls I certify that my clinical findings support that this patient is homebound because: Unsafe to leave home unassisted Chris Craven MD May 07, 2017 11:33
--- NOTE | 2017-05-07 19:36 | EKG ---
Date Performed: 05/06/2017 Time Performed: 10:55:43 PTAGE: 61 years EKG: Sinus rhythm WITH FIRST DEGREE AV BLOCK INTRAVENTRICULAR CONDUCTION DELAY INFERIOR MYOCARDIAL INFARCTION ABNORMAL ECG Since PREVIOUS TRACING , no significant change noted PREVIOUS TRACIN07/31/2016 19.23 DOCTOR: Juice Dewitt Interpretating Date/Time 05/07/2017 19:35:19
--- NOTE | 2017-05-07 19:37 | EKG ---
Date Performed: 05/06/2017 Time Performed: 11:16:12 PTAGE: 61 years EKG: Sinus rhythm WITH FIRST DEGREE AV BLOCK INTRAVENTRICULAR CONDUCTION DELAY INFERIOR MYOCARDIAL INFARCTION ABNORMAL ECG Since PREVIOUS TRACING , no significant change noted PREVIOUS TRACIN05/06/2017 10.58 DOCTOR: Juice Dewitt Interpretating Date/Time 05/07/2017 19:35:52
--- NOTE | 2017-05-07 19:37 | EKG ---
Date Performed: 05/06/2017 Time Performed: 10:58:03 PTAGE: 61 years EKG: Sinus rhythm WITH FIRST DEGREE AV BLOCK POSSIBLE ANTERIOR MYOCARDIAL INFARCTION INFERIOR MYOCARDIAL INFARCTION MO DERATE T-WAVE ABNORMALITY, CONSIDER LATERAL ISCHEMIA ABNORMAL ECG Since PREVIOUS TRACING , no significant change noted PREVIOUS TRACIN05/06/2017 10.55 DOCTOR: Juice Dewitt Interpretating Date/Time 05/07/2017 19:35:30
[2017-05-07] MEDS ORDERED: CARVEDILOL 12.5 MG TAB PO SCH (21:00)
[2017-05-08] MEDS ORDERED: FUROSEMIDE 20 MG TAB PO SCH ×2 (09:00)
[2017-05-12] MEDS ORDERED: METHOTREXATE 2.5 MG TAB PO SCH (09:00)
== END 2017-05-07 14:30 | disposition home health service (06) | DRG 149 ==
LOC: PHED 10:49 → PHEDA 13:06 → HCIS 16:11
PROVIDERS: ADMIT Internal Medicine; ATTEND Internal Medicine
DX: R42 Dizziness and giddiness (principal); Z68.42 Body mass index [BMI] 45.0-49.9, adult; E66.01 Morbid (severe) obesity due to excess calories; I10 Essential (primary) hypertension; E87.6 Hypokalemia; I25.10 Atherosclerotic heart disease of native coronary artery without angina pectoris; I25.2 Old myocardial infarction; Z95.1 Presence of aortocoronary bypass graft; H55.00 Unspecified nystagmus; M19.90 Unspecified osteoarthritis, unspecified site; H91.90 Unspecified hearing loss, unspecified ear; H93.19 Tinnitus, unspecified ear; E11.9 Type 2 diabetes mellitus without complications; E78.5 Hyperlipidemia, unspecified; Z79.82 Long term (current) use of aspirin; Z23 Encounter for immunization; Z87.891 Personal history of nicotine dependence
CPT/HCPCS: 71010; 71275; 80048; 82550; 82552; 83735; 83880; 84484; 85025; 85610; 85730; 90686; 93005; 96361; 96374; 96375; J1644; J2060; J2405; J7030; Q2038; Q9967